=== PATIENT | male | born 1960 | race Caucasian/White ===

== ENCOUNTER 2018-03-25 18:41 | Inpatient (IN) | payer OTHER ==
[~2018-03-25] VITALS: Ht 180.3 cm; Wt 74.9 kg
--- NOTE | 2018-03-25 18:48 | NUR ---
PT AMBULATES TO BED 6
[2018-03-25 18:52] VITALS: BP 136/76
--- NOTE | 2018-03-25 18:54 | NUR ---
PT HAS ABRASION TO R THUMB S/P SITE INTERPRETER INJURY AT WORK. NO OTHER COMPLAINTS. 10 PAIN
--- NOTE | 2018-03-25 18:54 | NUR ---
PT AMBULATES TO ED BED 6
--- NOTE | 2018-03-25 19:12 | NUR ---
PT RESTING IN BED, RR EVEN AND UNLABORED. LACERATION NOTED ON R THUMB, BLEEDING CONTROLLED, X5 DAYS. BLOOD SUGAR TOO HIGH TO READ AT THIS TIME. PRICE SIMMONS MADE AWARE, PA EVALUATING PT AT THIS TIME.
[2018-03-25] MEDS ORDERED: NACL 0.9% 1,000 ML IV ONE (19:20)
[2018-03-25] MEDS ORDERED: VANCOMYCIN 1GM/DEXT 5% PREMIX 200 ML IV ONE (19:20)
[2018-03-25] MEDS ORDERED: VANCOMYCIN PER PHARMACY MC PRN ×2 (19:20→22:50)
[2018-03-25] MEDS ORDERED: VANCOMYCIN 1,000 MG VIAL ONE (19:54)
[2018-03-25 19:56] LABS: BASOPHILS # (AUTO) 0.1 K/uL (0.00-0.22); BASOPHILS % (AUTO) 0.7 % (0.0-2.0); EOSINOPHILS # (AUTO) 0.1 K/uL (0-0.4); EOSINOPHILS % (AUTO) 0.8 % (0.0-4.0); HEMATOCRIT 43.1 % (36-52); HEMOGLOBIN 14.6 g/dL (12.0-18.0); LYMPHOCYTES # (AUTO) 2.3 K/uL (2.0-11.5); LYMPHOCYTES % (AUTO) 26.2 % (20.5-51.1); MEAN CORPUSCULAR HEMOGLOBIN 31 pg (27-31); MEAN CORPUSCULAR HGB CONC 34 g/dL (33-37); MEAN CORPUSCULAR VOLUME 91.1 fL (80-94); MONOCYTES # (AUTO) 0.7 K/uL (0.8-1.0); MONOCYTES % (AUTO) 7.6 % (1.7-9.3); NEUTROPHILS # (AUTO) 5.6 K/uL (1.8-7.7); NEUTROPHILS % (AUTO) 64.7 % (42.2-75.2); PLATELET COUNT (AUTO) 235 K/uL (140-450); RED BLOOD CELL COUNT(AUTO) 4.73 MIL/uL (4.20-6.10); RED CELL DISTRIBUTION WIDTH 13.5 % (11.6-13.7); WHITE BLOOD COUNT (AUTO) 8.6 K/uL (4.8-10.8)
[2018-03-25] MEDS ORDERED: INSULIN REGULAR, HUMAN 100 UNIT/ML VIAL SUBQ ONE (20:05)
[2018-03-25 20:13] LABS: ANION GAP 8.5 (8-16); CARBON DIOXIDE 29.8 mmol/L (21-32); CREATININE 1.1 mg/dL (0.7-1.3); POTASSIUM 4.3 mmol/L (3.5-5.1)
--- NOTE | 2018-03-25 21:21 | NUR ---
PT RESTING IN BED, RR EVEN AND UNLABORED. PT REPORTS TOLERABLE R THUMB PAIN, VS NOTED. BLOOD GLUCOSE 446, PA TROY MADE AWARE.
[2018-03-25] MEDS ORDERED: HYDROcodone/APAP 5/325 MG 1 TAB TAB PO PRN (22:50)
[2018-03-25] MEDS ORDERED: ONDANSETRON 4 MG/2 ML VIAL IVP PRN (22:50)
[2018-03-25] MEDS ORDERED: LORazepam 2 MG/ML VIAL IVP PRN (22:50)
[2018-03-25] MEDS ORDERED: ACETAMINOPHEN 325 MG TAB PO PRN (22:50)
[2018-03-25] MEDS ORDERED: DEXTROSE 50% 50 ML SYR IVP PRN (22:55)
--- NOTE | 2018-03-25 23:06 | NUR ---
PENDING ADMIT, AWAITING ADMIT ORDER FROM ADMITTING MD
[2018-03-26] VITALS: BP 103/73
--- NOTE | 2018-03-26 | NUR ---
RECEIVED PT FROM ER NURSE PEE-JANETT AT BEDSIDE. PT ARRIVED VIA WHEELCHAIR, AMBULATORY. PT AOX4, SLOVENIAN SPEAKING. ON ROOM AIR WITH IV SITE ON LEFT AC #18G. RIGHT THUMB CELLULITIS- OPEN WOUND. PICTURE IN CHART. MRSA SWAB COLLECTED. VITAL SIGNS TAKEN AND TOELRATED WELL. BLOOD GLUCOSE 243- WILL GIVE INSULIN COVERAGE. ORIENTED PT TO ROOM, CALL LIGHT, BED, RESTROOM LOCATION. DISCUSSED PLAN OF CARE AND PT VERBALIZED UNDERSTANDING. NO S/S OF RESPIRATORY DISTRESS OR DISCOMFORT NOTED AT THIS TIME. BED IN LOWEST POSITION, BED BREAKS ON, BOTH SIDE RAILS UP. BEDSIDE TABLE AND CALL LIGHT ARE WITHIN REACH. WILL CONTINUE TO MONITOR.
--- NOTE | 2018-03-26 00:08 | NUR ---
Patient will be admitted to care of DR. HUMPHREYS. Admited to [facility]. Will go to room 119. Belongings list completed. Report to COLLEEN ROWLAND.
[2018-03-26] MEDS ORDERED: INSULIN LANTUS 100 UNITS/ML 10 ML VIAL SUBQ SCH (00:30)
[2018-03-26] MEDS: NACL 0.9% 1,000 ML IV SCH ×3 (00:41→12:30)
--- NOTE | 2018-03-26 00:41 | NUR ---
IVF HUNG. PT TOLERATED WELL. NO S/S OF RESPIRATORY DISTRESS OR DISCOMFORT NOTED AT THIS TIME. WILL CONTINUE TO MONITOR.
--- NOTE | 2018-03-26 00:50 | NUR ---
SCHEDULED MEDICATION LANTUS GIVEN AND TOLERATED WELL. NO S/S OF RESPIRATORY DISTRESS OR DISCOMFORT NOTED AT THIS TIME. WILL CONTINUE TO MONITOR.
--- NOTE | 2018-03-26 01:48 | NUR ---
DR. HUMPHREYS AWARE OF EKG RESULTS- AV DISSOCIATION AND DECREASING HR. ORDERED DR. BHAKTA CONSULT.
--- NOTE | 2018-03-26 02:00 | NUR ---
PT SLEEPING IN BED. NO S/S OF RESPIRATORY DISTRESS OR DISCOMFORT NOTED AT THIS TIME. WILL CONTINUE TO MONITOR.
[2018-03-26 04:00] VITALS: BP 122/74
--- NOTE | 2018-03-26 04:00 | NUR ---
VITAL SIGNS TAKEN AND TOLERATED WELL. PT CONTINUES TO SLEEP IN BED. NO S/S OF RESPIRATORY DISTRESS OR DISCOMFORT NOTED AT THIS TIME. WILL CONTINUE TO MONITOR.
[2018-03-26] MEDS: BLOOD GLUCOSE MONITORING 1 DEV DEV FS SCH ×4 (05:35→19:39)
--- NOTE | 2018-03-26 05:35 | NUR ---
BLOOD GLUCOSE 203- WILL ADMINISTER INSULIN COVERAGE.
[2018-03-26] MEDS: INSULIN LISPRO SLIDING SCALE 100 UNITS/ML VIAL SUBQ PRN ×4 (06:15→20:02)
--- NOTE | 2018-03-26 06:15 | NUR ---
INSULIN COVERAGE GIVEN AND TOLERATED WELL. NO S/S OF RESPIRATORY DISTRESS OR DISCOMFORT NOTED AT THIS TIME. WILL CONTINUE TO MONITOR.
--- NOTE | 2018-03-26 07:13 | NUR ---
ENDORSED PT CARE TO DAY SHIFT NURSE BRISEYDA FOR CONTINUITY OF CARE.
[2018-03-26 08:00] VITALS: BP 102/66
[2018-03-26 08:18] LABS: BASOPHILS % (AUTO) 0.2 % (0.0-2.0); EOSINOPHILS # (AUTO) 0.1 K/uL (0-0.4); EOSINOPHILS % (AUTO) 1.1 % (0.0-4.0); HEMATOCRIT 40.1 % (36-52); HEMOGLOBIN 13.6 g/dL (12.0-18.0); LYMPHOCYTES # (AUTO) 3.1 K/uL (2.0-11.5); LYMPHOCYTES % (AUTO) 32.3 % (20.5-51.1); MEAN CORPUSCULAR HEMOGLOBIN 31 pg (27-31); MEAN CORPUSCULAR HGB CONC 34 g/dL (33-37); MONOCYTES # (AUTO) 0.8 K/uL (0.8-1.0); MONOCYTES % (AUTO) 8.1 % (1.7-9.3); NEUTROPHILS # (AUTO) 5.6 K/uL (1.8-7.7); NEUTROPHILS % (AUTO) 58.3 % (42.2-75.2); PLATELET COUNT (AUTO) 210 K/uL (140-450); RED BLOOD CELL COUNT(AUTO) 4.45 MIL/uL (4.20-6.10); RED CELL DISTRIBUTION WIDTH 13.5 % (11.6-13.7); WHITE BLOOD COUNT (AUTO) 9.6 K/uL (4.8-10.8)
[2018-03-26 08:30] LABS: MAGNESIUM 1.3 mg/dL (1.8-2.4); PHOSPHORUS 3.3 mg/dL (2.5-4.9)
[2018-03-26] MEDS: VANCOMYCIN 750 MG in NACL 0.9% 250 ML IV SCH ×2 (08:38→19:39)
[2018-03-26] MEDS: ENOXAPARIN 40 MG/0.4 ML SYR SUBQ SCH (08:39)
--- NOTE | 2018-03-26 08:39 | NUR ---
PATIENT HAS BEEN SCREENED AND CATEGORIZED HIGH NUTRITION RISK. PATIENT WILL BE SEEN WITHIN 1-2 DAYS OF ADMISSION. 03/26/18 03/27/[address]
--- NOTE | 2018-03-26 08:41 | NUR ---
ADMINISTERED MORNING MEDS. REPLACED THE IVF, GAVE LOVENOX, AND STARTED THE VANCO. PT TOLERATED WELL. ASKED IF HE WAS LEAVING TODAY. NOTIFIED PT POSSIBLY TOMORROW. BS THIS MORNING WAS 203. HR 52. PT HAS A CONSULT WITH DR BHAKTA AND DR MIRAMONTES FOR DM INFECTION. MET ALL NEEDS. CALL LIGHT WITHIN REACH. WILL CONTINUE TO MONITOR PT. Addendum: 03/26/18 at 0848 by Fifi Rodrigues RN HELD THE HUMALOG DUE AT 0730. UNSURE IF IT WAS GIVEN BY KILN HAND. PER PT, HE DID RECEIVE INSULIN THIS MORNING. BUT IT IS NOT DOCUMENTED.
--- NOTE | 2018-03-26 08:52 | NUR ---
TURNED DOWN THE ALARM TO BELOW 40 D/T CONSTANT BEEPING PER BILINGUAL INSTRUCTOR. WHEN PT SLEEPS, HR TENDS TO DROP. WILL CONTINUE TO MONITOR PT.
[2018-03-26 09:42] LABS: ANION GAP 11.5 (8-16); CARBON DIOXIDE 28.1 mmol/L (21-32); POTASSIUM 3.6 mmol/L (3.5-5.1)
[2018-03-26 09:43] LABS: CREATININE 0.6 mg/dL (0.7-1.3); TOTAL BILIRUBIN 0.4 mg/dL (0.0-1.0)
[2018-03-26 09:44] LABS: ALBUMIN 2.6 g/dL (3.4-5.0)
--- NOTE | 2018-03-26 10:45 | NUR ---
DR REYES IS HERE TO SEE PT. PER , MAY NEED DEBRIDEMENT TOMORROW. ORDERS FOR NUC MED IN. NUC MED CALLED TO LET US KNOW IT WILL BE TOMORROW. NO PREP NEEDED.
[2018-03-26] MEDS: INSULIN LISPRO 100 UNITS/ML VIAL SUBQ SCH ×3 (11:30→17:07)
[2018-03-26 12:00] VITALS: BP 109/72
[2018-03-26] MEDS ORDERED: MAG SULF 2000 MG/WATER PREMIX 50 ML IV SCH (12:00)
--- NOTE | 2018-03-26 13:35 | NUR ---
PT RESTING COMFORTABLY. NO SIGNS OF DISTRESS. NO COMPLAINTS. WILL CONTINUE TO MONITOR PT.
--- NOTE | 2018-03-26 15:09 | NUR ---
PT IS SLEEPING. NO SIGNS OF DISTRESS. NO COMPLAINTS AT THIS TIME. WILL CONTINUE TO MONITOR PT.
--- NOTE | 2018-03-26 15:10 | NUR ---
03/26/18 RD INITIAL ASSESSMENT COMPLETED PLEASE REFER TO NUTRITION ASSESSMENT UNDER CARE ACTIVITY FOR ESTIMATED NUTRITIONAL NEEDS. 1. CONTINUE CCHO 60 GM DIET TOLERATED 2. RECOMMEND LETICIA BID FOR WOUND HEALING 3. RD PROVIDED NUTRITION EDUCATION ON DIABETES 4. RD TO FOLLOW-UP 3-5 DAYS, MODERATE RISK CONNIE PURDY RD
--- NOTE | 2018-03-26 15:15 | NUR ---
DR BHAKTA CAME TO SEE PT.
--- NOTE | 2018-03-26 15:50 | NUR ---
DIRECTOR NICU RECOMMENDATION FOR LETICIA BID, FOR CELLULITIS.
[2018-03-26 16:00] VITALS: BP 109/69
--- NOTE | 2018-03-26 17:00 | NUR ---
PT FAMILY VISITING. NO SIGNS OF DISTRESS. WILL CONTINUE TO MONITOR PT.
[2018-03-26] MEDS: INSULIN LANTUS 100 UNITS/ML 10 ML VIAL SUBQ SCH (17:09)
--- NOTE | 2018-03-26 19:10 | NUR ---
ENDORSED PT TO THE NEONATAL SOCIAL WORKER NURSE AT BEDSIDE FOR CONTINUITY OF CARE. PT IS IN STABLE CONDITION.
--- NOTE | 2018-03-26 19:11 | NUR ---
RECEIVED REPORT FROM DAY SHIFT NURSE LISSA-JANETT. FAMILY AT BEDSIDE. PT AOX4, AZERI SPEAKING. AMBULATORY WITH BATHROOM PRIVILEGES. ON ROOM AIR WITH IV SITE ON LEFT AC #18G. RIGHT THUMB CELLULITIS- OPEN WOUND. PICTURE IN CHART. DISCUSSED PLAN OF CARE AND PT VERBALIZED UNDERSTANDING. NO S/S OF RESPIRATORY DISTRESS OR DISCOMFORT NOTED AT THIS TIME. BED IN LOWEST POSITION, BED BREAKS ON, BOTH SIDE RAILS UP. BEDSIDE TABLE AND CALL LIGHT ARE WITHIN REACH. WILL CONTINUE TO MONITOR.
[2018-03-26 20:00] VITALS: BP 117/72
--- NOTE | 2018-03-26 20:02 | NUR ---
VITAL SIGNS TAKEN AND TOLERATED WELL. NO S/S OF RESPIRATORY DISTRESS OR DISCOMFORT NOTED AT THIS TIME. SCHEDULED MEDICATION VANCOCIN GIVEN AND TOLERATED WELL. BLOOD GLUCOSE 206-INSULIN COVERAGE GIVEN AND TOLERATED WELL. NO S/S OF RESPIRATORY DISTRESS OR DISCOMFORT NOTED AT THIS TIME. WILL CONTINUE TO MONITOR.
--- NOTE | 2018-03-26 21:13 | NUR ---
DR. MIRAMONTES IN TO SEE PT.
--- NOTE | 2018-03-26 22:00 | NUR ---
PT SLEEPING AT THIS TIME. NO S/S OF RESPIRATORY DISTRESS OR DISCOMFORT NOTED AT THIS TIME. WILL CONTINUE TO MONITOR.
[2018-03-27] VITALS: BP 96/69
--- NOTE | 2018-03-27 | NUR ---
VITAL SIGNS TAKEN AND TOLERATED WELL. NO S/S OF RESPIRATORY DISTRESS OR DISCOMFORT NOTED AT THIS TIME. WILL CONTINUE TO MONITOR.
--- NOTE | 2018-03-27 00:30 | NUR ---
NEW IVF HUNG AND PT TOLERATED WELL. NO S/S OF RESPIRATORY DISTRESS OR DISCOMFORT NOTED AT THIS TIME. WILL CONTINUE TO MONITOR.
--- NOTE | 2018-03-27 02:00 | NUR ---
PT CONTINUES TO SLEEP IN BED. NO S/S OF RESPIRATORY DISTRESS OR DISCOMFORT NOTED AT THIS TIME. WILL CONTINUE TO MONITOR.
[2018-03-27 04:00] VITALS: BP 109/69
--- NOTE | 2018-03-27 04:00 | NUR ---
VITAL SIGNS TAKEN AND TOLERATED WELL. NO S/S OF RESPIRATORY DISTRESS OR DISCOMFORT NOTED AT THIS TIME. WILL CONTINUE TO MONITOR.
[2018-03-27] MEDS: NACL 0.9% 1,000 ML IV SCH ×2 (04:53→14:48)
--- NOTE | 2018-03-27 06:00 | NUR ---
BLOOD GLUCOSE 161-INSULIN COVERAGE NEEDED.
[2018-03-27] MEDS: BLOOD GLUCOSE MONITORING 1 DEV DEV FS SCH ×4 (06:21→21:00)
[2018-03-27] MEDS: INSULIN LISPRO SLIDING SCALE 100 UNITS/ML VIAL SUBQ PRN ×3 (06:21→18:20)
--- NOTE | 2018-03-27 06:21 | NUR ---
INSULIN COVERAGE GIVEN. PT TOLERATED WELL. SCHEDULED 5 UNITS OF HUMALOG NOT GIVEN DUE TO LOW BLOOD GLUCOSE. WILL ENDORSE TO DAY SHIFT NURSE TO GIVE SCHEDULED 5 UNITS OF HUMALOG AFTER PT HAS EATEN AND BLOOD GLUCOSE IS RE-CHECKED.
[2018-03-27 06:50] LABS: BASOPHILS # (AUTO) 0.1 K/uL (0.00-0.22); BASOPHILS % (AUTO) 0.5 % (0.0-2.0); EOSINOPHILS # (AUTO) 0.1 K/uL (0-0.4); EOSINOPHILS % (AUTO) 1.3 % (0.0-4.0); HEMATOCRIT 38.9 % (36-52); HEMOGLOBIN 13.3 g/dL (12.0-18.0); LYMPHOCYTES # (AUTO) 3.6 K/uL (2.0-11.5); LYMPHOCYTES % (AUTO) 35.7 % (20.5-51.1); MEAN CORPUSCULAR HEMOGLOBIN 31 pg (27-31); MEAN CORPUSCULAR HGB CONC 34 g/dL (33-37); MEAN CORPUSCULAR VOLUME 90.4 fL (80-94); MONOCYTES # (AUTO) 0.9 K/uL (0.8-1.0); MONOCYTES % (AUTO) 8.5 % (1.7-9.3); NEUTROPHILS # (AUTO) 5.5 K/uL (1.8-7.7); PLATELET COUNT (AUTO) 220 K/uL (140-450); RED CELL DISTRIBUTION WIDTH 13.4 % (11.6-13.7); WHITE BLOOD COUNT (AUTO) 10.2 K/uL (4.8-10.8)
--- NOTE | 2018-03-27 07:24 | NUR ---
ENDORSED PT CARE TO DAY SHIFT NURSE JASMIN-RN FOR CONTINUITY OF CARE.
[2018-03-27] MEDS: INSULIN LISPRO 100 UNITS/ML VIAL SUBQ SCH ×3 (07:30→18:19)
[2018-03-27 07:42] LABS: ALBUMIN 2.5 g/dL (3.4-5.0); ANION GAP 9.5 (8-16); CARBON DIOXIDE 29.3 mmol/L (21-32); CREATININE 0.6 mg/dL (0.7-1.3); POTASSIUM 3.8 mmol/L (3.5-5.1); TOTAL BILIRUBIN 0.4 mg/dL (0.0-1.0)
[2018-03-27 07:52] LABS: FREE T4 (FREE THYROXINE) 1.14 ng/dL (0.76-1.46); MAGNESIUM 1.4 mg/dL (1.8-2.4)
[2018-03-27 08:00] VITALS: BP 121/72
--- NOTE | 2018-03-27 08:00 | NUR ---
RECEIVED REPORT FROM REI ROWLAND FOR CONTINUITY OF CARE PATIENT AWAKE A/OX4 NO S/S OF RESP DISTRESS NOTED ABLE TO MAKE NEEDS KNOWN. RT THUMB OPEN WOUND COVERED WITH BANDAGE WITH MINIMAL DRAINAGE NOTED. DENIES ANY PAIN IV SITE RT AC GAUGE 20 INTACT AND PATENT. IVF INFUSING WELL. PLAN OF CARE DISCUSSED WITH THE PATIENT VITALS STABLE WILL CONTINUE TO MONITOR.
[2018-03-27] MEDS: ENOXAPARIN 40 MG/0.4 ML SYR SUBQ SCH (09:00)
--- NOTE | 2018-03-27 09:00 | NUR ---
HELD LOVENOX FOR POSSIBLE SURGERY WITH DR REYES. BONE SCAN SCHEDULE PRIOR TO SURGERY
[2018-03-27] MEDS: VANCOMYCIN 750 MG in NACL 0.9% 250 ML IV SCH ×2 (09:13→22:02)
--- NOTE | 2018-03-27 09:20 | NUR ---
WOUND CARE EVALUATION NOTES: REASON FOR EVALUATION: RIGHT THUMB CELLULITIS SKIN ASSESSMENT DONE ON THIS 57 Y/O MALE PATIENT FROM HOME TO [facility], WITH INITIAL DIAGNOSIS OF RIGHT THUMB PAIN. PAST MEDICAL HISTORY INCLUDE UNCONTROL DM. X- RAY TO RIGHT THUMB RESULT DISTAL PHALANGE CORTICAL AVULSION AND IMPACTED FRACTURE OF DISTAL PHALANX OF RIGHT THUMB. ABOVE INFORMATION WAS OBTAINED FROM THE ADMISSION H&P. LABS ARE WBC 10.2, H/H 13.3/38.9, GLUCOSE 216, AND ALBUMIN 2.5. PATIENT IS AWAKE, ORIENTED TO PERSON, PLACE, DATE AND TIME. SKIN WARM TO TOUCH WNL, RIGHT HAND WARM NORMAL IN COLOR WITH GOOD CIRCULATION TO ALL FINGERS EXCEPT RIGHT THUMB , SAM OF PAIN TO RIGHT THUMB.TOENAILS ARE SHORT AND THICKENED, FUNGALLY LOOKING, NO EDEMA, BILATERAL PEDAL PULSES, PRESENT. LEFT ARM PERIPHERAL IV PATENT AND INTACT. ON ROOM AIR. PLAN OF CARE AND DIABETIC FOOT CARE EXPLAIN TO PT. PT.ABLE TO VERBALIZE UNDERSTANDING. INTEGUMENTARY: -CELLULITIS TO RIGHT THUMB, 2X2.5X0.1 CM, WOUND BED IN DARK PURPLE, FRANCOIS-WOUND SKIN MACERATED, RIGHT THUMB IS WARM WITH SWELLING, PAIN 0/10 RECOMMENDATIONS: -PENDING I&D -BONE SCAN TO R/O OSTEOMYELITIS -CLEANSE RIGHT THUMB WITH NS, PAT DRY, APPLY ADAPTIC DRESSING AND WRAP WITH KERLIX ROLL AND SECURE WITH TAPE -KEEP SKIN CLEAN AND DRY AT ALL TIMES. RECOMMENDATIONS DISCUSSED WITH PRIMARY RN WILL FOLLOW UP PATIENT Q7 DAYS AND PRN. PLEASE CONTACT WOUND CARE NURSE FOR ANY QUESTIONS AND CHANGES IN SKIN CONDITION.
--- NOTE | 2018-03-27 09:40 | NUR ---
PATIENT LEFT TO NUCLEAR [facility] FORE BONE SCAN. STABLE CONDITION
[2018-03-27] MEDS ORDERED: MAG SULF 2000 MG/WATER PREMIX 100 ML IV ONE (10:40)
[2018-03-27] MEDS ORDERED: MAGNESIUM SULFATE 4GM in STERILE WATER 100 ML PREMIX IV SCH (11:00)
--- NOTE | 2018-03-27 11:30 | NUR ---
CHECKED BLOOD SUGAR 237 SLIDING SCALE COVERAGE 6 UNITS HUMALOG GIVEN, VITALS STABLE DENIES ANY PAIN.
--- NOTE | 2018-03-27 11:55 | NUR ---
TRANSFERRED PT TO ICU WITH BEDSIDE MONITOR IN PLACE. PT IN STABLE CONDITION DURING TRANSPORT WITH HR OF 61 BPM.N RESPIRATORY DISTRESS.
[2018-03-27 12:00] VITALS: BP 112/76
--- NOTE | 2018-03-27 12:13 | NUR ---
Initial review faxed to [facility].
[2018-03-27] MEDS: GAUZE TP SCH (13:00)
--- NOTE | 2018-03-27 13:00 | NUR ---
DR AGUIAR VISITED PATIENT UPDATED PATIENT'S CONDITION NO NEW ORDER AT THIS TIME.
--- NOTE | 2018-03-27 15:00 | NUR ---
CALM AND QUITE RELAXED ,STABLE CONDITION AT THIS TIME.
[2018-03-27 16:00] VITALS: BP 110/71
--- NOTE | 2018-03-27 17:04 | NUR ---
PT LEFT TO NUCLEAR MEDS FOR BONE SCAN , STABLE CONDITION
[2018-03-27] MEDS: INSULIN LANTUS 100 UNITS/ML 10 ML VIAL SUBQ SCH (18:18)
--- NOTE | 2018-03-27 18:46 | NUR ---
PATIENT IS BACK FROM THE NUCLEAR MEDS ,DENIES ANY PAIN , DUE MEDS GIVEN .SAFETY MAINTAINED CALL LIGHT IN REACH.
--- NOTE | 2018-03-27 19:10 | NUR ---
RECEIVED BEDSIDE REPORT FROM AM NURSE. PATIENT AWAKE A/OX4 NO S/S OF RESP DISTRESS NOTED ABLE TO MAKE NEEDS KNOWN. RT THUMB OPEN WOUND COVERED WITH BANDAGE WITH MINIMAL DRAINAGE NOTED. DENIES ANY PAIN IV SITE RT AC GAUGE 20 INTACT AND PATENT. IVF INFUSING WELL. PLAN OF CARE DISCUSSED WITH THE PATIENT VITALS STABLE WILL CONTINUE TO MONITOR.
--- NOTE | 2018-03-27 23:20 | NUR ---
INFORMED DR. Jeannie BHAKTA THAT HR IS 41-45 BPM PER TELE REPORT.
--- NOTE | 2018-03-27 23:39 | NUR ---
RECEIVED CALL FROM ELENA LEONARD AT 2320, PATIENT WILL BE TRANSFERRED HERE IN ICU MD VALERIE ORDERED TO OBTAIN CONSENT FOR TEMPORARY PACEMAKER PLACEMENT TO BE DONE TOMORROW AT 0900, NPO AFTER MIDNIGHT.
--- NOTE | 2018-03-27 23:45 | NUR ---
RECEIVED PT FROM [facility], TRANSFERRED TO ICU BED#2.MONITORS ATTACHED.ALERT AND ORIENTED X4. ON ROOM AIR.NO SOB NOTED.PT SAMMARINESE SPEAKING.ABLE TO UNDERSTAND SIMPLE TURKMEN.PERIPHERAL IV TO LT AC G20 INTACT AND G22 ON RT F/A,SALINE LOCK.DENIES N/V.DENIES CHEST PAIN, CHEST TIGHTNESS.W/OPEN WOUND TO RT THUMB(SEE WOUND ASSESSMENT).DRESSING CHANGED.PT ABLE TO MOVE ALL EXTREMITIES.
[2018-03-28] VITALS (13 sets, daily range): BP systolic 92–141; BP diastolic 38–82
--- NOTE | 2018-03-28 | NUR ---
AD STRINGER UP SOLDERING MACHINE [id number] EXPLAINED TO THE PT RE: CONSENT FOR PACEMAKER AND DEBRIDEMENT OF RIGHT THUMB; PT SAID HE WILL SIGN THE CONSENT IN AM AFTER HE SPEAKS WITH THE DOCTOR.HE DENIES KNOWLEDGE OF PACEMAKER PLACEMENT.PT DENIES CHEST PAIN, CHEST TIGHTNESS AND DIZZINESS. NO C/O PAIN AT THIS TIME.MAINTAINED OF NPO POST MIDNIGHT.
--- NOTE | 2018-03-28 01:07 | NUR ---
HR GOES DOWN TO 38; PT ASYMPTOMATIC.DENIES CHEST PAIN/CHEST TIGHTNESS. NO SOB ON ROOM AIR.WILL CONTINUE TO CLOSELY MONITOR PT Addendum: 03/28/18 at 0109 by Destinee Gauthier RN STILL ON STANDBY EXTERNAL PACEMAKER.DR Merlene BHAKTA AWARE
[2018-03-28] MEDS: NACL 0.9% 1,000 ML IV SCH ×3 (01:09→14:58)
--- NOTE | 2018-03-28 02:00 | NUR ---
pt still awake;denies pain, denies n/v and chest pain. able to reposition self.
--- NOTE | 2018-03-28 04:00 | NUR ---
afebrile.voided freely using urinal.no sob noted on room air.external pacemaker on standby
--- NOTE | 2018-03-28 05:42 | NUR ---
chg bath done.pt for debridement of rt thumb and placement of temporary pacemaker in am.no consents signed at this time.
--- NOTE | 2018-03-28 06:21 | NUR ---
PT ASLEEP AT THIS TIME.NO SOB NOTED ON ROOM AIR.EXTERNAL PACEMAKER ON STANDBY.
--- NOTE | 2018-03-28 07:14 | NUR ---
RECEIVED REPORT FROM SLOT KEY PERSON RN. PT RESTING IN BED. ALERT A/O X4. SB ON MONITOR. PLANNED FOR TEMPORARY PACEMAKER PLACEMENT. ABLE TO MAKE NEEDS KNOWN. SKIN DRY AND WARM TO TOUCH. LUNGS CLEAR. DENIES CHEST PAIN, DIZZINESS AT THIS TIME. RIGHT FOREARM 22G AND LEFT AC 22 G, INTACT. NS RUNNING AT 100 ML/HR. ABDOMEN SOFT ROUND AND NON-TENDER. ACTIVE BOWEL SOUND. OPEN WOUND ON RIGHT THUMB NOTED, COVERED WITH DRESSING. INTACT DRESSING. PLANNED FOR WOUND DEBRIDEMENT. KEPT HOB ELEVATED. BED IN LOW POSITION LOCKED. WILL CONTINUE TO MONITOR.
--- NOTE | 2018-03-28 07:14 | NUR ---
REPORT GIVEN TO HYUN ROWLAND. PT AWAKE ALERT AND ORIENTED.
[2018-03-28] MEDS: INSULIN LISPRO 100 UNITS/ML VIAL SUBQ SCH ×3 (07:30→16:34)
[2018-03-28 07:33] LABS: BASOPHILS % (AUTO) 0.5 % (0.0-2.0); EOSINOPHILS # (AUTO) 0.1 K/uL (0-0.4); HEMATOCRIT 39.6 % (36-52); HEMOGLOBIN 13.2 g/dL (12.0-18.0); LYMPHOCYTES # (AUTO) 3.2 K/uL (2.0-11.5); LYMPHOCYTES % (AUTO) 37.4 % (20.5-51.1); MEAN CORPUSCULAR HEMOGLOBIN 30 pg (27-31); MEAN CORPUSCULAR HGB CONC 33 g/dL (33-37); MEAN CORPUSCULAR VOLUME 90.9 fL (80-94); MONOCYTES # (AUTO) 0.5 K/uL (0.8-1.0); NEUTROPHILS # (AUTO) 4.7 K/uL (1.8-7.7); NEUTROPHILS % (AUTO) 55.1 % (42.2-75.2); PLATELET COUNT (AUTO) 227 K/uL (140-450); RED BLOOD CELL COUNT(AUTO) 4.35 MIL/uL (4.20-6.10); RED CELL DISTRIBUTION WIDTH 13.6 % (11.6-13.7); WHITE BLOOD COUNT (AUTO) 8.6 K/uL (4.8-10.8)
--- NOTE | 2018-03-28 07:50 | NUR ---
PT DENIED MORNING CARE. SAID HE WANTS TO SLEEP AT THIS TIME.
[2018-03-28 08:03] LABS: ALBUMIN 2.7 g/dL (3.4-5.0); ANION GAP 6.8 (8-16); CREATININE 0.5 mg/dL (0.7-1.3); POTASSIUM 3.8 mmol/L (3.5-5.1); TOTAL BILIRUBIN 0.3 mg/dL (0.0-1.0)
--- NOTE | 2018-03-28 08:10 | NUR ---
CHEST X-RAY DONE.
--- NOTE | 2018-03-28 08:17 | NUR ---
DR. BHAKTA AWARE ABOUT CONSENT NOT SIGNED BY PT. PT WANTS TO TALK TO THE DOCTOR BEFORE SIGN CONSENT. DOCTOR SAID OK.
[2018-03-28] MEDS: BLOOD GLUCOSE MONITORING 1 DEV DEV FS SCH ×4 (08:27→20:11)
[2018-03-28 08:34] LABS: PROTHROMBIN TIME 10.1 secs (10.8-13.4)
[2018-03-28] MEDS: VANCOMYCIN 1GM/DEXT 5% PREMIX 200 ML IV SCH ×2 (08:41→16:38)
[2018-03-28] MEDS: ENOXAPARIN 40 MG/0.4 ML SYR SUBQ SCH (08:46)
--- NOTE | 2018-03-28 08:46 | NUR ---
PT IS PLANNED FOR WOUND DEBRIDEMENT. LOVENOX NOT ADMINISTERED. DR. BHAKTA MADE AWARE. ALSO NOTIFIED THAT NOT ADMINISTERING HUMALOG BECAUSE PT IS IN NPO STATUS. DOCTOR SAID OK.
[2018-03-28] MEDS ORDERED: BUPIVACAINE-MPF/EPI 0.25% 30 ML VIAL INJ ONE (08:52)
[2018-03-28] MEDS ORDERED: MAG SULF 2000 MG/WATER PREMIX 50 ML IV SCH (09:00)
--- NOTE | 2018-03-28 09:04 | NUR ---
DR. BHAKTA EXPLAINED PT CONDITION TO PT AND FAMILY. VERBALIZED UNDERSTANDING. PT SIGNED THE CONSENTS FOR TEMPORARY PACEMAKER PLACEMENT AND WOUND DEBRIDEMENT. CONSENTS PUT IN RTHE CHART.
[2018-03-28] MEDS: BUPIVACAINE MPF 0.25% 10 ML VIAL INJ ONE ×2 (09:05→15:46)
--- NOTE | 2018-03-28 09:05 | NUR ---
PT TAKEN TO OR BY OR NURSE VIA BED IN STABLE CONDITION.
[2018-03-28] MEDS ORDERED: fentaNYL 0.05 MG/ML VIAL ONE ×2 (09:32→10:17)
[2018-03-28] MEDS ORDERED: MIDAZOLAM 2 MG/2 ML VIAL ONE ×2 (09:33→10:17)
[2018-03-28] MEDS ORDERED: LIDOCAINE 1% 50 ML ONE (09:35)
[2018-03-28] MEDS ORDERED: PROPOFOL 200 MG/20 ML VIAL IV ONE (09:52)
[2018-03-28] MEDS ORDERED: ONDANSETRON 4 MG/2 ML VIAL IVP PRN (10:20)
[2018-03-28] MEDS ORDERED: HYDROmorphone 1 MG/ML AMP IVP PRN (10:20)
[2018-03-28] MEDS ORDERED: BLOOD GLUCOSE MONITORING 1 DEV DEV FS SCH (10:30)
--- NOTE | 2018-03-28 11:00 | NUR ---
PT CAME BACK FROM OR AFTER WOUND DEBRIDEMENT ON RIGHT THUMB AND TEMPORARY PACEMAKER PLACEMENT AT RIGHT SUBCLAVIAN SET AT 60, mA 2. PT ON STABLE CONDITION. PACEMAKER SITE INTACT.
[2018-03-28] MEDS: INSULIN LISPRO SLIDING SCALE 100 UNITS/ML VIAL SUBQ PRN ×2 (11:36→16:35)
--- NOTE | 2018-03-28 12:08 | NUR ---
PT DENIES PAIN, N/V AT THIS TIME. DENIES ANY DIZZINESS OR DISCOMFORT. PT ATE LUNCH. RESTING IN BED COMFORTABLY AT THIS TIME. PACED RHYTHM ON MONITOR.
[2018-03-28] MEDS: GAUZE TP SCH (13:00)
--- NOTE | 2018-03-28 13:00 | NUR ---
DRESSING TO RIGHT THUMB NOT CHANGED. IT WAS DONE IN OR AFTER DEBRIDEMENT. INTACT DRESSING
--- NOTE | 2018-03-28 14:14 | NUR ---
Concurrent review and Operative Report faxed to [facility].
--- NOTE | 2018-03-28 15:01 | NUR ---
PT SLEEPING IN BED COMFORTABLY AT THIS TIME. PACED RHYTHM ON MONITOR. VS WNL.
[2018-03-28] MEDS: INSULIN LANTUS 100 UNITS/ML 10 ML VIAL SUBQ SCH (16:43)
--- NOTE | 2018-03-28 17:40 | NUR ---
RESTING IN BED COMFORTABLE. TALKING WITH THE FAMILY. VS WNL. PACED RHYTHM ON MONITOR.
--- NOTE | 2018-03-28 19:09 | NUR ---
RECEIVED REPORT FROM AM SHIFT. PT AFEBRILE. A0 X 4. ABLE TO VERBALIZE NEEDS. LUNG SOUNDS CLEAR BILAT. TEMPORARY PACEMAKER TO R SUBCLAVIAN NOTED. VENTRICULAR 60 BMP. 2 AMP. SB-SR ON MONITOR. ON CCHO 75G DIET. BOWEL SOUNDS ACTIVE X 4 QUADRANTS. PT CONTINENT FOR URINE. IV SITE R FA 22G AND L AC 22G PATENT INTACT. RIGHT THUMB DRESSING NOTED. INTACT. NO SIGNS OF ACUTE DISTRESS AT THIS TIME. CALL LIGHT WITHIN REACH. BED IN LOWEST POSITION. WILL CONTINUE TO MONITOR.
--- NOTE | 2018-03-28 19:11 | NUR ---
REPORT GIVEN TO ASSEMBLER ENGINE RN FOR CONTINUITY OF CARE. PT ON STABLE CONDITION.
--- NOTE | 2018-03-28 20:41 | NUR ---
PT URINATED VIA URINAL. 300ML OUTPUT YELLOW.
--- NOTE | 2018-03-28 21:09 | NUR ---
DR. BHAKTA AT BEDSIDE TO EVALUATE PT. UPDATED ON PTS CONDITION. WILL CONTINUE TO FOLLOW UP ADDITIONAL ORDERS
--- NOTE | 2018-03-28 23:01 | NUR ---
PT RESTING QUIETLY AT THIS TIME. NO SIGNS OF ACUTE DISTRESS NOTED.
[2018-03-29] VITALS (12 sets, daily range): BP systolic 102–142; BP diastolic 41–91
[2018-03-29] MEDS: VANCOMYCIN 1GM/DEXT 5% PREMIX 200 ML IV SCH ×2 (00:07→09:22)
[2018-03-29] MEDS: HYDROcodone/APAP 5/325 MG 1 TAB TAB PO PRN ×2 (02:23→07:36)
--- NOTE | 2018-03-29 02:30 | NUR ---
PT C/O THUMB PAIN 10 AT THIS TIME. GIVEN NORCO AT THIS TIME.
--- NOTE | 2018-03-29 03:30 | NUR ---
PT RESTING QUIETLY AT THIS TIME. NO C/O PAIN AT THIS TIME.
[2018-03-29] MEDS: NACL 0.9% 1,000 ML IV SCH ×2 (03:56→14:57)
--- NOTE | 2018-03-29 04:28 | NUR ---
PT C/O MILD THUMB PAIN AT THIS TIME. 650MG TYLENOL PO GIVEN.
[2018-03-29] MEDS ORDERED: MORPHINE SULFATE 2 MG/ML SYR IVP PRN (04:35)
--- NOTE | 2018-03-29 04:36 | NUR ---
SPOKE WITH DR. BHAKTA ABOUT PTS PAIN LEVEL. REPORTS SEVERE RIGHT THUMB PAIN. NEW ORDERS RECEIVED: MORPHINE 2MG Q4H IVP. TORB.
--- NOTE | 2018-03-29 04:55 | NUR ---
PT USED URINAL FOR UOP OF 320 ML. YELLOW URINE.
--- NOTE | 2018-03-29 04:57 | NUR ---
PT GIVEN MORPHINE 2MG FOR SEVERE THUMB PAIN. WILL CONTINUE TO MONITOR
[2018-03-29] MEDS: BLOOD GLUCOSE MONITORING 1 DEV DEV FS SCH ×4 (06:32→20:42)
--- NOTE | 2018-03-29 07:11 | NUR ---
ENDORSED CARE TO INCOMING SHIFT FOR CONTINUITY OF CARE. NO SIGNS OF ACUTE DISTRESS AT THIS TIME.
--- NOTE | 2018-03-29 07:12 | NUR ---
RECEIVED REPORT FROM ORACLE SOFTWARE ENGINEER RN. PT RESTING IN BED. ALERT A/O X4. PACED RHYTHM ON MONITOR. TEMPORARY PACEMAKER IN PLACE SET AT THE RATE 60, mA 2, ASYNCHRONIZE. NO ACTIVE BLEEDING, DENIES PAIN AT THE SITE. DRESSING INTACT. ABLE TO MAKE NEEDS KNOWN. SKIN DRY AND WARM TO TOUCH. LUNGS CLEAR. DENIES CHEST PAIN, DIZZINESS, NAUSEA AT THIS TIME. RIGHT FOREARM 22G AND LEFT AC 22 G, INTACT. NS RUNNING AT 100 ML/HR. ABDOMEN SOFT ROUND AND NON-TENDER. ACTIVE BOWEL SOUND. S/P WOUND DEBRIDEMENT DRESSING ON RIGHT THUMB. SLIGHT SEROSANGUINEOUS DISCHARGE NOTED. PT C/O RIGHT THUMB PAIN 5/. WILL PROVIDE WOUND CARE AND MEDICATE ORDERED. KEPT HOB ELEVATED. BED IN LOW POSITION LOCKED. WILL CONTINUE TO MONITOR.
[2018-03-29] MEDS: INSULIN LISPRO 100 UNITS/ML VIAL SUBQ SCH ×3 (07:32→16:29)
[2018-03-29] MEDS: INSULIN LISPRO SLIDING SCALE 100 UNITS/ML VIAL SUBQ PRN ×4 (07:32→20:42)
--- NOTE | 2018-03-29 07:58 | NUR ---
PT. REFUSED TO GET MORNING CARE, REFUSED TO BRUSH TEETH. PROVIDED BREAKFAST. ASSISTED NEEDED.
[2018-03-29 08:29] LABS: BASOPHILS % (AUTO) 0.2 % (0.0-2.0); EOSINOPHILS # (AUTO) 0.1 K/uL (0-0.4); EOSINOPHILS % (AUTO) 0.8 % (0.0-4.0); HEMATOCRIT 39.8 % (36-52); HEMOGLOBIN 13.6 g/dL (12.0-18.0); LYMPHOCYTES # (AUTO) 2.8 K/uL (2.0-11.5); LYMPHOCYTES % (AUTO) 29.7 % (20.5-51.1); MEAN CORPUSCULAR HEMOGLOBIN 31 pg (27-31); MEAN CORPUSCULAR HGB CONC 34 g/dL (33-37); MEAN CORPUSCULAR VOLUME 90.9 fL (80-94); MONOCYTES # (AUTO) 0.6 K/uL (0.8-1.0); MONOCYTES % (AUTO) 6.8 % (1.7-9.3); NEUTROPHILS # (AUTO) 5.9 K/uL (1.8-7.7); NEUTROPHILS % (AUTO) 62.5 % (42.2-75.2); PLATELET COUNT (AUTO) 216 K/uL (140-450); RED BLOOD CELL COUNT(AUTO) 4.38 MIL/uL (4.20-6.10); RED CELL DISTRIBUTION WIDTH 13.3 % (11.6-13.7); WHITE BLOOD COUNT (AUTO) 9.5 K/uL (4.8-10.8)
[2018-03-29] MEDS: ENOXAPARIN 40 MG/0.4 ML SYR SUBQ SCH (08:33)
--- NOTE | 2018-03-29 08:35 | NUR ---
WAITING VANCO TROUGH RESULT TO ADMINISTER VANCOMYCIN MED.
--- NOTE | 2018-03-29 08:47 | NUR ---
PT RESTING IN BED, STATED HE WANTS TO TAKE A NAP. BEDSIDE MONITOR SHOWS PACED RHYTHM. NO S/S OF RESPIRATORY DISTRESS NOTED.
[2018-03-29 08:49] LABS: ALBUMIN 2.6 g/dL (3.4-5.0); ANION GAP 8.3 (8-16); CARBON DIOXIDE 27.4 mmol/L (21-32); CREATININE 0.5 mg/dL (0.7-1.3); POTASSIUM 3.7 mmol/L (3.5-5.1); TOTAL BILIRUBIN 0.4 mg/dL (0.0-1.0)
[2018-03-29] MEDS ORDERED: MAG SULF 2000 MG/WATER PREMIX 100 ML IV ONE (09:10)
[2018-03-29] MEDS ORDERED: MAGNESIUM SULFATE 4GM in STERILE WATER 100 ML PREMIX IV SCH (10:00)
--- NOTE | 2018-03-29 11:36 | NUR ---
AT 1055 AM PT HR DROPPED DOWN TP 38-40. PACEMAKER FAILED TO CAPTURE. mA INCREASED FROM 2-4. HR INCREASED TO [address] BHAKTA X2. # [phone]. AT 1120 HR DECREASED AGAIN TO 40. mA INCREASED TO 5. PAGED DR. BHAKTA #[phone]. WAITING FOR CALL BACK. CHADWICK MARTINEZ MADE AWARE.
--- NOTE | 2018-03-29 12:00 | NUR ---
WOUND CARE PROVIDED ORDERED. TOOK PICTURE. PUT IN THE CHART. PT DENIED PAIN ON AT THE SITE AT THIS TIME. NO ACTIVE BLEEDING AT THIS TIME. INTACT DRESSING.
--- NOTE | 2018-03-29 12:17 | NUR ---
PROVIDED LUNCH TRY. ASSISTED NEEDED. EATING LUNCH AT THIS TIME.
[2018-03-29] MEDS: GAUZE TP SCH (13:03)
--- NOTE | 2018-03-29 14:56 | NUR ---
Dr.PALIWAL Blunt CALLED BACK.NOTIFIED PT IS STILL ON OUTPUT 5 mA, PER DR. LIVIA Blunt, DECREASE OUT PUT TO 4 mA TO SEE HOW PT IS DOING, IF HR DECREASED, INCREASE TO 5 mA, WILL CARRY OUT.
--- NOTE | 2018-03-29 15:06 | NUR ---
RESTING IN BED COMFORTABLY. TALKING TO SON. PACED RHYTHM ON MONITOR. NO ACUTE RESPIRATORY DISTRESS NOTED. WILL CONTINUE TO MONITOR.
[2018-03-29] MEDS: INSULIN LANTUS 100 UNITS/ML 10 ML VIAL SUBQ SCH (16:32)
[2018-03-29] MEDS: VANCOMYCIN 1,250 MG in NACL 0.9% 250 ML IV SCH (16:38)
--- NOTE | 2018-03-29 16:48 | NUR ---
EVALUATED BY DR. MIRAMONTES.
--- NOTE | 2018-03-29 17:57 | NUR ---
EATING DINNER AT THIS TIME.
--- NOTE | 2018-03-29 18:26 | NUR ---
MINIMAL SEROSANGUINEOUS DISCHARGE NOTED ON DRESSING TO RIGHT THUMB. DRESSING CHANGED. KEPT SITE CLEAN AND DRY. DENIES PAIN AT THE SITE.
[2018-03-29] MEDS: PIPER/TAZO 3.375GM/D5W PREMIX 50 ML IV SCH ×2 (18:34→23:18)
--- NOTE | 2018-03-29 19:25 | NUR ---
RECEIVED REPORT FROM MORNING SHIFT RN. PATIENT AAOX4. PACED RHYTHM ON MONITOR. TEMPORARY PACEMAKER IN PLACE SET AT THE RATE 60, OUTPUT 4mA. NO ACTIVE BLEEDING AND DENIES PAIN AT THE SITE. DRESSING INTACT. BILATERAL LUNGS SOUND CLEAR. NO ACUTE RESPIRATORY DISTRESS NOTED. DENIES CHEST PAIN. PATIENT HAS PERIPHERAL IV SITES TO RIGHT FOREARM 22G AND LEFT AC 22 G INTACT AND PATENT, NS RUNNING AT 100 ML/HR. ACTIVE BOWEL SOUND FROM ALL QUADS. S/P WOUND DEBRIDEMENT, DRESSING ON RIGHT THUMB. SLIGHT SEROSANGUINEOUS DISCHARGE NOTED. NO PAIN AT THIS TIME NOTED. SKIN WARM TO TOUCH. HOB ELEVATED. BED IN LOW POSITION. WILL CONTINUE TO MONITOR.
--- NOTE | 2018-03-29 19:32 | NUR ---
REPORT GIVEN TO DIRECTOR ATHLETIC RN FOR CONTINUITY OF CARE. PT ON STABLE CONDITION.
--- NOTE | 2018-03-29 19:50 | NUR ---
DR. BHAKTA AT BEDSIDE TO CHECK THE PATIENT. DR STATED HE WILL INSERT PERMANENT PACEMAKER ON SUNDAY. WILL FOLLOW ORDER.
--- NOTE | 2018-03-29 21:00 | NUR ---
BS CHECKED 181 NOTED. ADMINISTERED 2UNITS OF HUMALOG. WILL CONTINUE TO MONITOR.
--- NOTE | 2018-03-29 22:00 | NUR ---
PATIENT STATED HE FEELS HUNGRY AT THIS TIME. PATIENT ATE SANDWICHES AND JUICE. DENIES ANY PAIN OR DISCOMFORT AT THIS TIME. WILL CONTINUE TO MONITOR.
--- NOTE | 2018-03-29 23:30 | NUR ---
ADMINISTERED IV ABX ORDERED. WILL CONTINUE TO MONITOR.
[2018-03-30] VITALS (12 sets, daily range): BP systolic 95–137; BP diastolic 65–86
[2018-03-30] MEDS: VANCOMYCIN 1,250 MG in NACL 0.9% 250 ML IV SCH ×3 (01:01→18:49)
--- NOTE | 2018-03-30 01:05 | NUR ---
PATIENT'S HR WENT DOWN TO 45, INCREASED PULSE GENERATOR OUTPUT 5mA, HR WENT UP TO 64 THEN DECREASED OUTPUT TO 4mA. PATIENT AAOX4, DENIES CHEST PAIN, NO ACUTE DISTRESS NOTED, TOLERATED WELL WITH ROOM AIR. WILL CONTINUE TO MONITOR.
[2018-03-30] MEDS: NACL 0.9% 1,000 ML IV SCH (03:10)
--- NOTE | 2018-03-30 03:50 | NUR ---
PATIENT IN ASLEEP, AROUSABLE TO NAME, NO ACUTE DISTRESS NOTED. DENIES PAIN AT THIS TIME. WILL CONTINUE TO MONITOR.
[2018-03-30] MEDS: PIPER/TAZO 3.375GM/D5W PREMIX 50 ML IV SCH ×4 (05:30→23:43)
[2018-03-30 06:00] LABS: HEMATOCRIT 40.3 % (36-52); MEAN CORPUSCULAR HEMOGLOBIN 32 pg (27-31); MEAN CORPUSCULAR HGB CONC 35 g/dL (33-37); MEAN CORPUSCULAR VOLUME 90.3 fL (80-94); PLATELET COUNT (AUTO) 220 K/uL (140-450); RED BLOOD CELL COUNT(AUTO) 4.46 MIL/uL (4.20-6.10); RED CELL DISTRIBUTION WIDTH 12.3 % (11.6-13.7); WHITE BLOOD COUNT (AUTO) 7.6 K/uL (4.8-10.8)
[2018-03-30 06:01] LABS: ALBUMIN 2.6 g/dL (3.4-5.0); ANION GAP 9.2 (8-16); BASOPHILS # (AUTO) 0.2 K/uL (0.00-0.22); BASOPHILS % (AUTO) 2.3 % (0.0-2.0); CARBON DIOXIDE 26.6 mmol/L (21-32); CREATININE 0.6 mg/dL (0.7-1.3); EOSINOPHILS # (AUTO) 0.1 K/uL (0-0.4); EOSINOPHILS % (AUTO) 1.2 % (0.0-4.0); LYMPHOCYTES # (AUTO) 2.2 K/uL (2.0-11.5); LYMPHOCYTES % (AUTO) 29.3 % (20.5-51.1); MONOCYTES # (AUTO) 0.6 K/uL (0.8-1.0); MONOCYTES % (AUTO) 7.8 % (1.7-9.3); NEUTROPHILS # (AUTO) 4.5 K/uL (1.8-7.7); NEUTROPHILS % (AUTO) 59.4 % (42.2-75.2); POTASSIUM 3.8 mmol/L (3.5-5.1); TOTAL BILIRUBIN 0.3 mg/dL (0.0-1.0)
--- NOTE | 2018-03-30 06:20 | NUR ---
ADMINISTERED SCHEDULED ABX ORDERED. NO ACUTE DISTRESS NOTED. DENIES PAIN. WILL CONTINUE TO MONITOR.
--- NOTE | 2018-03-30 07:05 | NUR ---
RECEIVED BEDSIDE REPORT FROM SOFTWARE TEST DEVELOPER RN, KAITLIN, FOR CONTINUITY OF CARE. PATIENT IS AAOX4, ABLE TO FOLLOW COMMANDS AND MAKE NEEDS KNOWN. PATIENT SKIN IS WARM AND DRY, NOT INTACT, HE HAS WOUND TO RIGHT THUMB, POST DEBRIDEMENT. HE HAS PERIPHERAL IV SITE TO L. AC AND R. FA, 22 GAUGE, ASYMPTOMATIC AND PATENT. PATIENT IS ON ROOM AIR, BREATHING UNLABORED AND EVEN. PATIENT HAS TEMPORARY PACEMAKER IN PLACE, RATE 60 OUTPUT 5mA, SR ON MONITOR. PATIENT DENIES ANY PAIN OR SOB. HOB IS ELEVATED, IN LOW POSITION AND LOCKED. ALL SAFETY PRECAUTIONS ASSESSED AND ENFORCED. CALL LIGHT WITHIN REACH. NO SIGNS OF DISTRESS NOTED. WILL CONTINUE TO MONITOR.
--- NOTE | 2018-03-30 07:15 | NUR ---
BEDSIDE REPORT GIVEN TO MORNING NURSE FOR CONTINUITY OF CARE.
[2018-03-30] MEDS: BLOOD GLUCOSE MONITORING 1 DEV DEV FS SCH ×4 (07:32→21:09)
[2018-03-30] MEDS: INSULIN LISPRO 100 UNITS/ML VIAL SUBQ SCH ×3 (07:38→16:44)
[2018-03-30] MEDS: ENOXAPARIN 40 MG/0.4 ML SYR SUBQ SCH (08:24)
[2018-03-30] MEDS ORDERED: MAG SULF 2000 MG/WATER PREMIX 100 ML IV ONE (09:25)
--- NOTE | 2018-03-30 10:52 | NUR ---
DR. HUMPHREYS IN TO SEE AND EXAMINE PATIENT, UPDATED ON PATIENT'S CONDITION. WILL FOLLOW UP WITH ANY ORDERS
[2018-03-30] MEDS ORDERED: VANCOMYCIN PER PHARMACY MC PRN (10:55)
[2018-03-30] MEDS ORDERED: MAGNESIUM SULFATE 4GM in STERILE WATER 100 ML PREMIX IV SCH (11:00)
[2018-03-30] MEDS: INSULIN LISPRO SLIDING SCALE 100 UNITS/ML VIAL SUBQ PRN ×2 (11:11→21:12)
[2018-03-30] MEDS: GAUZE TP SCH (11:12)
--- NOTE | 2018-03-30 12:35 | NUR ---
03/30/18 RD FOLLOW UP COMPLETED PLEASE REFER TO NUTRITION PROGRESS NOTE UNDER CARE ACTIVITY FOR ESTIMATED NUTRITION NEEDS. RD RECOMMENDATIONS: 1. CONTINUE CCHO 75 GM DIET TOLERATED 2. CONTINUE LETICIA BID FOR WOUND HEALING 3. RD TO FOLLOW-UP 3-5 DAYS, MODERATE RISK STEFAN TANNER MBA, RD
--- NOTE | 2018-03-30 14:03 | NUR ---
PT HR DROPPED TO 40S WHILE PT WAS SLEEPING. WOKE PT UP, PT STATED HE IS FINE. HR INCREASED TO 62-64S.
[2018-03-30] MEDS: INSULIN LANTUS 100 UNITS/ML 10 ML VIAL SUBQ SCH (16:44)
--- NOTE | 2018-03-30 17:10 | NUR ---
UNABLE TO ADMINISTER VANCO AT THIS TIME DUE TO MEDICATION NOT AVAILABLE IN [facility] AND PHARMACY CLOSED AT THIS TIME. WILL FOLLOW UP WITH FACILITY SERVICE MANAGER.
--- NOTE | 2018-03-30 17:44 | NUR ---
PROVIDED PATIENT WITH DINNER TRAY, FAMILY AT BEDSIDE. NO SIGNS OF DISTRESS NOTED. WILL CONTINUE TO MONITOR
[2018-03-30] MEDS ORDERED: VANCOMYCIN 1,000 MG VIAL ONE (18:24)
[2018-03-30] MEDS ORDERED: VANCOMYCIN 500 MG VIAL ONE (18:44)
--- NOTE | 2018-03-30 19:08 | NUR ---
ENDORSED CONTINUITY OF CARE TO SPECIAL EQUIPMENT TECHNICIAN RN, KAITLIN, PATIENT IS RESTING COMFORTABLY, NO SIGNS OF DISTRESS NOTED
--- NOTE | 2018-03-30 19:20 | NUR ---
RECEIVED REPORT FROM MORNING SHIFT RN. PATIENT AAOX4. PACED RHYTHM ON MONITOR. TEMPORARY PACEMAKER IN PLACE SET AT THE RATE 60, OUTPUT 4mA, ASYNCHRONIZED. NO ACTIVE BLEEDING AND DENIES PAIN AT THE SITE. DRESSING INTACT. BILATERAL LUNGS SOUND CLEAR. NO ACUTE RESPIRATORY DISTRESS NOTED. DENIES CHEST PAIN. PATIENT HAS PERIPHERAL IV SITES TO RIGHT FOREARM 22G AND LEFT AC 22 G INTACT AND PATENT, NS RUNNING AT 100 ML/HR. ACTIVE BOWEL SOUND FROM ALL QUADS. S/P WOUND DEBRIDEMENT, DRESSING ON RIGHT THUMB. SLIGHT SEROSANGUINEOUS DISCHARGE NOTED. NO PAIN AT THIS TIME NOTED. SKIN WARM TO TOUCH. HOB ELEVATED. BED IN LOW POSITION. WILL CONTINUE TO MONITOR.
--- NOTE | 2018-03-30 21:00 | NUR ---
ADMINISTERED SCHEDULED MEDICATIONS ORDERED. BS CHECKED 203 NOTED. ADMINISTERED HUMALOG 4 UNITS SLIDING SCALE. NO ACUTE DISTRESS, DENIES PAIN AT THIS TIME. CONTINUE TO MONITOR.
[2018-03-30] MEDS: MAGNESIUM OXIDE 400 MG TAB PO SCH (21:07)
--- NOTE | 2018-03-30 23:00 | NUR ---
PATIENT IN ASLEEP, AROUSABLE TO NAME. NO ACUTE DISTRESS NOTED. DENIES PAIN AT THIS TIME. WILL CONTINUE TO MONITOR.
[2018-03-31] VITALS (12 sets, daily range): BP systolic 96–162; BP diastolic 49–97
[2018-03-31] MEDS ORDERED: VANCOMYCIN 500 MG VIAL ONE (01:34)
[2018-03-31] MEDS ORDERED: VANCOMYCIN 1,000 MG VIAL ONE (01:35)
--- NOTE | 2018-03-31 01:50 | NUR ---
ADMINISTERED SCHEDULED ABX ORDERED. RECEIVED VANCOMYCIN 1G AND 500MG FROM HAND SPRING REPAIRER. ONLY VANCOMYCIN 1.250GM MIXED WITH NS 250ML ORDERED. PATIENT IN ASLEEP. WILL CONTINUE TO MONITOR.
[2018-03-31] MEDS: VANCOMYCIN 1,250 MG in NACL 0.9% 250 ML IV SCH ×3 (01:56→16:29)
--- NOTE | 2018-03-31 03:00 | NUR ---
PATIENT IN ASLEEP, NO ACUTE DISTRESS NOTED. PACED RHYTHM ON THE MONITOR. WILL CONTINUE TO MONITOR.
[2018-03-31] MEDS: PIPER/TAZO 3.375GM/D5W PREMIX 50 ML IV SCH ×3 (05:15→18:18)
--- NOTE | 2018-03-31 05:24 | NUR ---
ADMINISTERED SCHEDULED MEDICATIONS ORDERED. NO ACUTE DISTRESS NOTED. TOLERATED WELL WITH TEMPORARY PACE MAKER. PATIENT IN ASLEEP, AROUSABLE TO NAME. WILL CONTINUE TO MONITOR.
[2018-03-31 05:58] LABS: BASOPHILS % (AUTO) 0.6 % (0.0-2.0); EOSINOPHILS # (AUTO) 0.1 K/uL (0-0.4); EOSINOPHILS % (AUTO) 1.9 % (0.0-4.0); HEMATOCRIT 37.9 % (36-52); HEMOGLOBIN 12.7 g/dL (12.0-18.0); LYMPHOCYTES # (AUTO) 2.5 K/uL (2.0-11.5); LYMPHOCYTES % (AUTO) 35.8 % (20.5-51.1); MEAN CORPUSCULAR HEMOGLOBIN 30 pg (27-31); MEAN CORPUSCULAR HGB CONC 33 g/dL (33-37); MEAN CORPUSCULAR VOLUME 90.5 fL (80-94); MONOCYTES # (AUTO) 0.5 K/uL (0.8-1.0); MONOCYTES % (AUTO) 7.7 % (1.7-9.3); NEUTROPHILS # (AUTO) 3.8 K/uL (1.8-7.7); PLATELET COUNT (AUTO) 213 K/uL (140-450); RED BLOOD CELL COUNT(AUTO) 4.19 MIL/uL (4.20-6.10); RED CELL DISTRIBUTION WIDTH 13.3 % (11.6-13.7)
--- NOTE | 2018-03-31 07:20 | NUR ---
RECEIVED BEDSIDE REPORT FROM CLIENT CARE SPECIALIST RN, KAITLIN, FOR CONTINUITY OF CARE. PATIENT IS AAOX4, ABLE TO FOLLOW SIMPLE COMMANDS AND MAKE NEEDS KNOWN. PATIENT SKIN IS WARM AND DRY, NOT INTACT, PATIENT HAS I&D TO RIGHT THUMB, DRESSING DRY AND CLEAN. HE HAS PERIPHERAL IV SITE TO LAC AND RFA, 22 GAUGE, ASYMPTOMATIC, PATENT, INTACT. PATIENT IS ON ROOM AIR, BREATHING EVEN AND UNLABORED. PATIENT HAS EXTERNAL PACEMAKER IN PLACE RATE OF 60 AND OUTPUT OF 4mA. DENIES ANY PAIN OR SOB. HOB IS SEMI-FOWLERS, SAFETY PRECAUTIONS ASSESSED AND ENFORCED. NO SIGNS OF DISTRESS NOTED. WILL CONTINUE TO MONITOR.
[2018-03-31 07:24] LABS: ALBUMIN 2.4 g/dL (3.4-5.0); ANION GAP 11.2 (8-16); CARBON DIOXIDE 26.6 mmol/L (21-32); CREATININE 0.6 mg/dL (0.7-1.3); POTASSIUM 3.8 mmol/L (3.5-5.1); TOTAL BILIRUBIN 0.3 mg/dL (0.0-1.0)
--- NOTE | 2018-03-31 07:25 | NUR ---
BEDSIDE REPORT GIVEN TO MORNING SHIFT NURSE.
[2018-03-31] MEDS: BLOOD GLUCOSE MONITORING 1 DEV DEV FS SCH ×4 (07:35→20:07)
[2018-03-31] MEDS: INSULIN LISPRO 100 UNITS/ML VIAL SUBQ SCH ×3 (07:39→16:14)
--- NOTE | 2018-03-31 08:55 | NUR ---
ADMINISTERED SCHEDULED MEDS ORDERED, PATIENT TOLERATED WELL.
[2018-03-31] MEDS: MAGNESIUM OXIDE 400 MG TAB PO SCH ×2 (09:01→20:50)
[2018-03-31] MEDS: ENOXAPARIN 40 MG/0.4 ML SYR SUBQ SCH (09:02)
[2018-03-31] MEDS: INSULIN LISPRO SLIDING SCALE 100 UNITS/ML VIAL SUBQ PRN ×3 (11:53→20:56)
[2018-03-31] MEDS: GAUZE TP SCH (12:19)
--- NOTE | 2018-03-31 12:57 | NUR ---
PATIENT'S FRIEND AT BEDSIDE, NO SIGNS OF DISTRESS NOTED.
[2018-03-31] MEDS ORDERED: PROBIOTIC SCREEN 1 EA MISC MC PRN (13:50)
[2018-03-31] MEDS: INSULIN LANTUS 100 UNITS/ML 10 ML VIAL SUBQ SCH (16:18)
--- NOTE | 2018-03-31 18:10 | NUR ---
PATIENT PICKED UP BY PARAMEDICS, DENIES ANY SOB OR PAIN, STILL TACHYPNEIC AND TACHYCARDIC. ENDORSED REPORT TO PARAMEDICS, AWARE THAT PATIENT WILL BE TRANSFERRED TO [facility] SICU BED 6. Addendum: 03/31/18 at 1817 by Doris Lo RN WRONG PATIENT
--- NOTE | 2018-03-31 19:15 | NUR ---
PT IS AWAKE AND IN STABLE CONDITION AT THIS DEREK, ALERT AND ABLE TO RESPOND TO COMMANDS. AFERBILE 98.9 FOR TEMP. LUNG SOUNDS CLEAR ON UPPER BILATERAL LOBES ON AUSCULTATION, ON ROOM AIR. SR ON CIRCULAR CLERK, EXTERNAL PACEMAKER. HR OF 65, OUTPUTM mA=4. PIV LEFT AC 22 GAUGE, AND R FOREARM 22 GAUGE. INFUSING 100ML NS/HR. URINAL AND COMMODE AT BEDSIDE, PT IS INDEPENDENT ABLE TO AMBULATE. SKIN IS NON-INTACT, CELLULITIS ON RIGHT THUMB, DRESSING IS DRY AND INTACT. PT DENIES PAIN AND NAUSEA AT THIS TIME. STANDARD PRECAUTIONS MAINTAINED, SIDE RAILS UP X3. HOB ELEVATED ABOVE 30 DEG. Addendum: 04/01/18 at 0146 by Allyssa Rosas RN CORRECTION: AFEBRILE 97.6. PACEMAKER = mA=4, HR=60
--- NOTE | 2018-03-31 20:13 | NUR ---
DR. BEDOLLA AT BEDSIDE TO SEE PATIENT, TALKED TO PT ABOUT PLAN FOR PACEMAKER.
--- NOTE | 2018-03-31 20:52 | NUR ---
BG 242, 4 UNITS OF INSULIN GIVEN PER ORDER.
[2018-03-31] MEDS ORDERED: cefTRIAXone 1,000 MG VIAL ONE (20:58)
--- NOTE | 2018-03-31 21:05 | NUR ---
DR. MIRAMONTES AT BEDSIDE TO SEE PATIENT. NO NEW ORDERS AT THIS TIME.
--- NOTE | 2018-03-31 22:30 | NUR ---
PT IS SLEEPING AT THIS TIME,IN STABLE CONDITION. PT APPEARS RELAXED AND WITHOUT DISCOMFORT. ABLE TO REPOSITION SELF IN BED.
[2018-04-01] VITALS (12 sets, daily range): BP systolic 95–127; BP diastolic 60–93
--- NOTE | 2018-04-01 01:10 | NUR ---
RECEIVED REPORT FROM KIMBERLY ROWLAND. PATIENT IN ASLEEP AT THIS TIME, AROUSABLE TO NAME, ALFREDO. PACED RHYTHM ON MONITOR. TEMPORARY PACEMAKER IN PLACE SET AT THE RATE 60, OUTPUT 4mA, ASYNCHRONIZED. NO ACTIVE BLEEDING AND DENIES PAIN AT THE SITE. DRESSING INTACT. BILATERAL LUNGS SOUND CLEAR. NO ACUTE RESPIRATORY DISTRESS NOTED. DENIES CHEST PAIN. PATIENT HAS PERIPHERAL IV SITES TO RIGHT FOREARM 22G AND LEFT AC 22 G INTACT AND PATENT, NS RUNNING AT 100 ML/HR. ACTIVE BOWEL SOUND FROM ALL QUADS. S/P WOUND DEBRIDEMENT, DRESSING ON RIGHT THUMB. SLIGHT SEROSANGUINEOUS DISCHARGE NOTED. NO PAIN AT THIS TIME NOTED. SKIN WARM TO TOUCH. HOB ELEVATED. BED IN LOW POSITION. WILL CONTINUE TO MONITOR.
--- NOTE | 2018-04-01 04:00 | NUR ---
PATIENT IN ASLEEP, AROUSABLE TO VOICE. NO ACUTE DISTRESS NOTED. DENIES PAIN. WILL CONTINUE TO MONITOR.
[2018-04-01 04:59] LABS: BASOPHILS % (AUTO) 0.5 % (0.0-2.0); EOSINOPHILS # (AUTO) 0.1 K/uL (0-0.4); EOSINOPHILS % (AUTO) 1.7 % (0.0-4.0); HEMATOCRIT 37.6 % (36-52); HEMOGLOBIN 12.6 g/dL (12.0-18.0); LYMPHOCYTES # (AUTO) 3.1 K/uL (2.0-11.5); LYMPHOCYTES % (AUTO) 37.9 % (20.5-51.1); MEAN CORPUSCULAR HEMOGLOBIN 30 pg (27-31); MEAN CORPUSCULAR HGB CONC 34 g/dL (33-37); MEAN CORPUSCULAR VOLUME 90.4 fL (80-94); MONOCYTES # (AUTO) 0.6 K/uL (0.8-1.0); MONOCYTES % (AUTO) 6.9 % (1.7-9.3); NEUTROPHILS # (AUTO) 4.4 K/uL (1.8-7.7); PLATELET COUNT (AUTO) 220 K/uL (140-450); RED BLOOD CELL COUNT(AUTO) 4.15 MIL/uL (4.20-6.10); RED CELL DISTRIBUTION WIDTH 13.3 % (11.6-13.7); WHITE BLOOD COUNT (AUTO) 8.3 K/uL (4.8-10.8)
[2018-04-01 05:26] LABS: ALBUMIN 2.4 g/dL (3.4-5.0); ANION GAP 11.4 (8-16); CARBON DIOXIDE 28.5 mmol/L (21-32); CREATININE 0.6 mg/dL (0.7-1.3); POTASSIUM 3.9 mmol/L (3.5-5.1); TOTAL BILIRUBIN 0.2 mg/dL (0.0-1.0)
--- NOTE | 2018-04-01 07:00 | NUR ---
BS CHECKED 186 NOTED. HOLD INSULIN DUE TO NPO AT THIS TIME FOR PERMANENT PACE MAKER PLACEMENT. WILL CONTINUE TO MONITOR.
[2018-04-01] MEDS: BLOOD GLUCOSE MONITORING 1 DEV DEV FS SCH ×4 (07:17→20:43)
--- NOTE | 2018-04-01 07:21 | NUR ---
RECEIVED REPORT FROM PLANNING DIVISION SUPERINTENDENT RN. PT RESTING IN BED. ALERT A/O X4. ABLE TO MAKE NEEDS KNOWN. PACED RHYTHM ON MONITOR. TEMPORARY PACEMAKER IN PLACE SET AT THE RATE 60, mA WAS 5 DECREASED BY PLANNING DIVISION SUPERINTENDENT RN TO 4, ASYNCHRONIZE. NO ACTIVE BLEEDING AT PACEMAKER SITE. DRESSING INTACT. SKIN DRY AND WARM TO TOUCH. LUNGS CLEAR. DENIES CHEST PAIN, DIZZINESS, NAUSEA AT THIS TIME. RIGHT FOREARM 22G AND LEFT AC 22 G, INTACT. NS RUNNING AT 10 ML/HR. ABDOMEN SOFT ROUND AND NON-TENDER. ACTIVE BOWEL SOUND. S/P WOUND DEBRIDEMENT DRESSING ON RIGHT THUMB. INTACT. NO DRAINAGE. KEPT HOB ELEVATED. BED IN LOW POSITION LOCKED. WILL CONTINUE TO MONITOR.
--- NOTE | 2018-04-01 07:21 | NUR ---
BEDSIDE REPORT GIVEN TO MORNING NURSE FOR CONTINUITY OF CARE.
[2018-04-01] MEDS: INSULIN LISPRO 100 UNITS/ML VIAL SUBQ SCH ×3 (07:30→16:51)
[2018-04-01] MEDS: HYDROcodone/APAP 5/325 MG 1 TAB TAB PO PRN ×2 (08:06→14:36)
[2018-04-01] MEDS: LACTOBACILLUS RHAMNOSUS GG 1 EACH CAP PO SCH (08:07)
[2018-04-01] MEDS: MAGNESIUM OXIDE 400 MG TAB PO SCH ×2 (08:07→20:44)
[2018-04-01] MEDS: ENOXAPARIN 40 MG/0.4 ML SYR SUBQ SCH (08:07)
--- NOTE | 2018-04-01 08:08 | NUR ---
LOVENOX NOT ADMINISTERED. PT IS SCHEDULED FOR PERMANENT PACEMAKER PLACEMENT AT 1225.
--- NOTE | 2018-04-01 08:13 | NUR ---
OFFERED MORNING CARE. PT SAID WILL DO LATER. SAID "I AM SLEEPY NOW."
[2018-04-01] MEDS ORDERED: LIDOCAINE/EPI 2% 1:100000 20 ML VIAL INJ ONE (08:32)
[2018-04-01] MEDS ORDERED: ceFAZolin 1,000 MG VIAL ONE ×3 (08:32→12:59)
--- NOTE | 2018-04-01 08:35 | NUR ---
RECEIVED CALL FROM DR. BHAKTA. MADE AWARE ABOUT HOLDING INSULIN SUBQ AND LOVENOX. SAID OK.
--- NOTE | 2018-04-01 10:30 | NUR ---
WOUND CARE RE-EVALUATION NOTES REASON FOR EVALUATION: S/P I&D AND DEBRIDEMENT OF THE RIGHT THUMB 03/25 SKIN ASSESSMENT DONE ON THIS 57 Y/O MALE PATIENT FROM HOME TO [facility], WITH INITIAL DIAGNOSIS OF RIGHT THUMB PAIN. PAST MEDICAL HISTORY INCLUDE UNCONTROL DM. ABOVE INFORMATION WAS OBTAINED FROM THE ADMISSION H&P. LABS ARE WBC 8.3, H/H 12.6/37.6, GLUCOSE 252, AND ALBUMIN 2.4. PATIENT IS AWAKE, ORIENTED TO PERSON, PLACE, DATE AND TIME. SKIN WARM TO TOUCH WNL, RIGHT HAND WARM NORMAL IN COLOR WITH GOOD CIRCULATION TO ALL FINGERS EXCEPT RIGHT THUMB , SAM OF PAIN TO RIGHT THUMB.TOENAILS ARE SHORT AND THICKENED, FUNGALLY LOOKING, NO EDEMA, BILATERAL PEDAL PULSES, PRESENT. LEFT ARM PERIPHERAL IV PATENT AND INTACT. ON ROOM AIR. PLAN OF CARE AND DIABETIC FOOT CARE EXPLAIN TO PT. PT.ABLE TO VERBALIZE UNDERSTANDING. INTEGUMENTARY: -S/P I&D AND DEBRIDEMENT OF RIGHT THUMB CELLULITIS, 3.5X2.2X0.3 CM , WOUND BED RED/PINK, RIGHT THUMB IS WARM WITH SWELLING, PAIN 0/10 RECOMMENDATIONS: -CLEANSE RIGHT THUMB WITH NS, PAT DRY. PACK WOUND WITH IODOFORM STRIP. APPLY ADAPTIC DRESSING AND WRAP WITH KERLIX ROLL AND SECURE WITH TAPE -KEEP SKIN CLEAN AND DRY AT ALL TIMES. RECOMMENDATIONS DISCUSSED WITH PRIMARY RN WILL FOLLOW UP PATIENT Q7 DAYS AND PRN. PLEASE CONTACT WOUND CARE NURSE FOR ANY QUESTIONS AND CHANGES IN SKIN CONDITION.
--- NOTE | 2018-04-01 11:28 | NUR ---
BS 164. PT ON NPO STATUS INSULIN NOT ADMINISTERED.
[2018-04-01] MEDS ORDERED: fentaNYL 0.05 MG/ML VIAL ONE (12:25)
[2018-04-01] MEDS ORDERED: MIDAZOLAM 2 MG/2 ML VIAL ONE (12:25)
--- NOTE | 2018-04-01 12:25 | NUR ---
PT TAKEN TO OR BY OR NURSES VIA BED. PT ON STABLE CONDITION DURING TRANSFER. FAMILY LEFT ICU WITH PATIENT.
[2018-04-01 12:49] LABS: APPEARANCE,URINE SLIGHTLY HAZY (CLEAR); BILIRUBIN,URINE NEGATIVE (NEGATIVE); BLOOD, URINE NEGATIVE (NEGATIVE); COLOR,URINE YELLOW (YELLOW); LEUKOCYTE ESTERASE ,URINE NEGATIVE (NEGATIVE); NITRITE, URINE NEGATIVE (NEGATIVE); UGLUCOSE NEGATIVE (NEGATIVE)
[2018-04-01 12:50] LABS: RBC,URINE 0-5 (RARE) /HPF (0-5); WBC,URINE 0-5 (RARE) /HPF (0-5)
[2018-04-01] MEDS ORDERED: LIDOCAINE/EPI MPF 2%1:200000 10 ML VIAL INJ ONE (13:04)
[2018-04-01] MEDS: GAUZE TP SCH (13:39)
--- NOTE | 2018-04-01 14:15 | NUR ---
PT RECEIVED FROM OR VIA BED. PT A/O X4. ABLE TO VERBALIZE NEEDS. S/P TEMPORARY PACEMAKER SITE ON RIGHT UPPER CHEST COVERED WITH DRESSING. NO ACTIVE DRAINAGE AT THE SITE. NEW PERMANENT PACEMAKER ON LEFT UPPER CHEST. DRESSING TRANSPARENT, INTACT. PACED RHYTHM ON MONITOR. NO BLEEDING AT THE SITE. PT DENIES PAIN THE THE SITE. C/O HEADACHE. WILL MEDICATE ORDER. VS P 60 BP 102/63 SPO2 99% RR 12. WILL CONTINUE TO MONITOR.
--- NOTE | 2018-04-01 14:44 | NUR ---
PACEMAKER BOOKLET AND TEMPORARY ID HANDED TO THE SON JANIE. SON AND AT BED SIDE.
--- NOTE | 2018-04-01 14:46 | NUR ---
PT OK TO HAVE FOOD PER DR. HBAKTA. PT TOLERATED PO FEEDING. EATING SALAD BROUGHT BY FAMILY.
[2018-04-01] MEDS: INSULIN LANTUS 100 UNITS/ML 10 ML VIAL SUBQ SCH (16:52)
--- NOTE | 2018-04-01 16:54 | NUR ---
ADMINISTER INSULIN SUBQ ORDERED. TOLERATING WELL.
--- NOTE | 2018-04-01 18:02 | NUR ---
SITTING AT BEDSIDE, EATING DINNER.
[2018-04-01] MEDS ORDERED: INFLUENZA VIRUS VACCINE QUAD 0.5 ML SYR IMVAC PRN (18:40)
[2018-04-01] MEDS ORDERED: PNEUMOCOCCAL VACCINE 23 MCG/0.5 ML VIAL IMVAC SCH (18:40)
--- NOTE | 2018-04-01 19:20 | NUR ---
RECEIVED REPORT FROM MORNING SHIFT RN. PATIENT AAOX4. PACED RHYTHM ON MONITOR. PERMANEBT PACEMAKER IN PLACE TO LEFT UPPER CHEST. BILATERAL LUNGS SOUND CLEAR. NO ACUTE RESPIRATORY DISTRESS NOTED. DENIES CHEST PAIN. PATIENT HAS SALINE LOCK IV SITES TO RIGHT FOREARM 22G AND LEFT AC 22 G INTACT AND PATENT. ACTIVE BOWEL SOUND FROM ALL QUADS. S/P WOUND DEBRIDEMENT, DRESSING ON RIGHT THUMB. SLIGHT SEROSANGUINEOUS DISCHARGE NOTED. NO PAIN AT THIS TIME NOTED. SKIN WARM TO TOUCH. HOB ELEVATED. BED IN LOW POSITION. WILL CONTINUE TO MONITOR.
--- NOTE | 2018-04-01 19:20 | NUR ---
ADMINISTERED FLU SHOT AND PNA VACCINE PER ORDER. NO ADVERSE REACTION NOTED. TOLERATING WELL.
--- NOTE | 2018-04-01 19:27 | NUR ---
REPORT GIVEN TO AUDIO VIDEO TECH RN FOR CONTINUITY OF CARE. [PT ON STABLE CONDITION.
[2018-04-01] MEDS: INSULIN LISPRO SLIDING SCALE 100 UNITS/ML VIAL SUBQ PRN (20:45)
--- NOTE | 2018-04-01 20:45 | NUR ---
ADMINISTERED SCHEDULED MEDICATIONS ORDERED, BS CHECKED 294 NOTED. ADMINISTERED 6 UNITS OF INSULIN. PROVIDED SANDWICHES PATIENT'S REQUEST. NO ACUTE DISTRESS NOTED. 100% PACED RHYTHM WITH HR 60 NOTED. DENIES PAIN AT THIS TIME. WILL CONTINUE TO MONITOR.
--- NOTE | 2018-04-01 22:30 | NUR ---
PATIENT IN ASLEEP AT THIS TIME, AROUSABLE TO VOICE. NO ACUTE DISTRESS NOTED. WILL CONTINUE TO MONITOR.
[2018-04-02] VITALS (10 sets, daily range): BP systolic 91–143; BP diastolic 60–91
--- NOTE | 2018-04-02 | NUR ---
PATIENT WOKE UP FOR URINATION. CLEAR YELLOW URINE NOTED. DENIES PAIN OR DISCOMFORT. WILL CONTINUE TO MONITOR.
--- NOTE | 2018-04-02 02:30 | NUR ---
PATIENT IN ASLEEP AT THIS TIME. NO ACUTE DISTRESS NOTED. WILL CONTINUE TO MONITOR.
--- NOTE | 2018-04-02 05:00 | NUR ---
PATIENT IN ASLEEP AT THIS TIME, AROUSABLE TO VOICE. NO ACUTE DISTRESS NOTED. DENIES PAIN. WILL CONTINUE TO MONITOR.
[2018-04-02 05:13] LABS: BASOPHILS # (AUTO) 0.1 K/uL (0.00-0.22); BASOPHILS % (AUTO) 0.8 % (0.0-2.0); EOSINOPHILS # (AUTO) 0.2 K/uL (0-0.4); EOSINOPHILS % (AUTO) 2.1 % (0.0-4.0); HEMATOCRIT 38.1 % (36-52); HEMOGLOBIN 12.8 g/dL (12.0-18.0); LYMPHOCYTES # (AUTO) 1.8 K/uL (2.0-11.5); LYMPHOCYTES % (AUTO) 24.8 % (20.5-51.1); MEAN CORPUSCULAR HEMOGLOBIN 31 pg (27-31); MEAN CORPUSCULAR HGB CONC 34 g/dL (33-37); MEAN CORPUSCULAR VOLUME 90.4 fL (80-94); MONOCYTES # (AUTO) 0.5 K/uL (0.8-1.0); MONOCYTES % (AUTO) 6.5 % (1.7-9.3); NEUTROPHILS # (AUTO) 4.8 K/uL (1.8-7.7); NEUTROPHILS % (AUTO) 65.8 % (42.2-75.2); PLATELET COUNT (AUTO) 231 K/uL (140-450); RED BLOOD CELL COUNT(AUTO) 4.21 MIL/uL (4.20-6.10); RED CELL DISTRIBUTION WIDTH 13.1 % (11.6-13.7); WHITE BLOOD COUNT (AUTO) 7.3 K/uL (4.8-10.8)
[2018-04-02 05:43] LABS: ALBUMIN 2.6 g/dL (3.4-5.0); ANION GAP 9.3 (8-16); CARBON DIOXIDE 29.9 mmol/L (21-32); CREATININE 0.6 mg/dL (0.7-1.3); POTASSIUM 4.2 mmol/L (3.5-5.1); TOTAL BILIRUBIN 0.2 mg/dL (0.0-1.0)
[2018-04-02] MEDS: BLOOD GLUCOSE MONITORING 1 DEV DEV FS SCH ×3 (07:14→16:54)
--- NOTE | 2018-04-02 07:15 | NUR ---
BEDSIDE REPORT GIVEN TO MORNING SHIFT RN FOR CONTINUITY OF CARE.
[2018-04-02] MEDS: HYDROcodone/APAP 5/325 MG 1 TAB TAB PO PRN (07:23)
--- NOTE | 2018-04-02 07:30 | NUR ---
RECEIVED REPORT FROM PM NURSE, PT AWAKE, ALERT. RA. NO S/S OF RESPIRATORY DISTRESS NOTED. PT HAD PERMANENT PACEMAKER TO LEFT CHEST, SITE INTACT AND DRY. NO REDNESS NOTED. LUNG SOUND CLEAR, PT HAS IV TO RIGHT FA AND LEFT AC, SITE INTACT AND PATENT. SKIN NON INTACT TO RIGHT THUMB.COVERED WITH DRESSING. DRY AND INTACT. PT ABLE TO AMBULATE. PT ALSO C/O HEADACHE, PAIN MENDS GIVEN.POC EXPLAINED TO PT,PT VERBALIZED UNDERSTANDING. CALL LIGHT IN PLACE, WILL CONTINUE TO MONITOR.
[2018-04-02] MEDS: INSULIN LISPRO 100 UNITS/ML VIAL SUBQ SCH ×3 (07:44→17:42)
[2018-04-02] MEDS: INSULIN LISPRO SLIDING SCALE 100 UNITS/ML VIAL SUBQ PRN ×3 (07:45→17:42)
[2018-04-02] MEDS: ENOXAPARIN 40 MG/0.4 ML SYR SUBQ SCH (08:39)
[2018-04-02] MEDS: LACTOBACILLUS RHAMNOSUS GG 1 EACH CAP PO SCH (08:39)
[2018-04-02] MEDS: MAGNESIUM OXIDE 400 MG TAB PO SCH (08:39)
--- NOTE | 2018-04-02 10:55 | NUR ---
DRESSING TO RIGHT THUMB IS OFF, CLEANED WOUND AND PUT NEW DRESSING ON. PT TOLERATED WELL.
[2018-04-02] MEDS ORDERED: ATOR40TA PO (12:04)
[2018-04-02] MEDS ORDERED: [UNRECOGNIZED DRUG - CODE] (12:04)
[2018-04-02] MEDS ORDERED: ROC1PM IV (12:04)
[2018-04-02] MEDS ORDERED: LANTUS SUBQ (12:04)
[2018-04-02] MEDS: GAUZE TP SCH (13:00)
--- NOTE | 2018-04-02 13:40 | NUR ---
Integration Technician Note: I met with patient at bedside. Patient speaks Faroese. Per patient, he has never been at a long-term facility before. He is in agreement with short term snf placement for wound care and abx ivs. He prefers to be transfer to [facility] if possible since it is close to his home, he lives in [place], [place]. His second snf choice is [facility] , adult protective caseworker Shasta pathak aware. I faxed inquiry to [facility].
--- NOTE | 2018-04-02 14:12 | NUR ---
Animal Rehabilitator Note: Per Fabrizio from [facility] , they don't have a male short term bed available at this time, unable to accept patient. I faxed inquiry to Yasmany Goldberg.
--- NOTE | 2018-04-02 14:30 | NUR ---
DR. HUMPHREYS USED OCCUPATIONAL THERAPY SPECIALIST SERVICE #[id number] TO EXPLAIN RISKS AND BENEFITS REGARDING PICC LINE INSERTION. PT SIGNED CONSENT.
--- NOTE | 2018-04-02 14:40 | NUR ---
PICC LINE NURSE STARTED TO INSERT PICC LINE, TIME OUT FORM DONE, US TECH AT BEDSIDE GUIDED.
--- NOTE | 2018-04-02 15:07 | NUR ---
x-ray at bedside.
--- NOTE | 2018-04-02 15:29 | NUR ---
Barge Pilot Note: Per Marietta from [facility] , patient has been accepted and may go to room 2B at their facility today, accepting physician is , showcase trimmer Shasta pathak aware.
--- NOTE | 2018-04-02 15:33 | NUR ---
I CALLED CORRIE FROM [facility] AND INFORMED HER THAT [facility] WILL TAKE THE PATIENT. SHE SAID THE AUTH NUMBER FOR [facility] IS [id number]. PER ZARA FROM [facility], THE AUTH FOR TRANSPORT IS [id number]. I FAXED THE ORDER TO [facility], CORRIE PHONE [phone]. FAX [phone]
--- NOTE | 2018-04-02 16:06 | NUR ---
CALLED [facility] TO SET UP TRANSPORT. CASE PACKER AND SEALER WILL BE AT 1800.
--- NOTE | 2018-04-02 16:11 | NUR ---
CALLED [facility] [phone], REPORT GIVEN TO OXANA ROWLAND. PT WILL BE TRANSFERRED TO ROOM 2B.
--- NOTE | 2018-04-02 16:49 | NUR ---
ALL CONSULTS (DR. MIRAMONTES, DR. Jeannie BHAKTA AND DR. REYES) MADE AWARE OF DISCHARGE ORDER.
[2018-04-02] MEDS ORDERED: MAGNESIUM OXIDE 400 MG TAB PO SCH (16:55)
--- NOTE | 2018-04-02 17:00 | NUR ---
CALLED DR. HUMPHREYS MAG LEVEL 1.4, MAG-OX 400 MG ORDER RECEIVED AND CARRIED OUT.
[2018-04-02] MEDS: INSULIN LANTUS 100 UNITS/ML 10 ML VIAL SUBQ SCH (17:44)
--- NOTE | 2018-04-02 17:50 | NUR ---
PT AWAKE, ALERT. SIGNED DISCHARGE INSTRUCTION. TOLD PT TO VISIT DR. LIVIA Blunt AND DR. REYES'S OFFICE IN 10 DAYS AND TWO WEEKS SEPARATELY. OFFICE NUMBERS GIVEN. PT VERBALIZED UNDERSTANDING.
--- NOTE | 2018-04-02 18:33 | NUR ---
TRANSPORTATION TEAM PRESENT TO BEDSIDE. REPORT GIVEN.PT AWAKE, ALERT. RA, NO S/S OF RESPIRATORY DISTRESS NOTED. PT DENIES PAIN. PT LEFT UNIT IN STABLE CONDITION. Addendum: 04/02/18 at 1838 by Evan Reaves RN ALL PERSONAL BELONGINGS WITH PT.
--- NOTE | 2018-04-03 11:22 | NUR ---
Crematory Operator Note: Late entry for 04/02/18: I provided Marietta from [facility] with snf auth [id number] from [facility].
--- NOTE | 2018-04-03 12:36 | NUR ---
Hereditary Cancer Program Coordinator Note: Late entry for 04/02/18: Rome Mcmanus from [facility] , she will schedule an appointment for patient to see in two weeks and an appointment to see Merlene Cesar in 10 days. She stated they will take patient to these two physicians' office.
== END 2018-04-02 18:30 | DRG 710 ==
LOC: MED 18:41 → MTU 23:35 → MIC 03-27 23:32
PROVIDERS: ADMIT Hospitalist; ATTEND Hospitalist
PROC: 0JH604Z Insertion of Pacemaker, Single Chamber into Chest Subcutaneous Tissue and Fascia, Open Approach (ICD-10-PCS; 2018-03-28)
PROC: 02HK3JZ Insertion of Pacemaker Lead into Right Ventricle, Percutaneous Approach (ICD-10-PCS; 2018-03-28)
PROC: 0JBJ0ZZ Excision of Right Hand Subcutaneous Tissue and Fascia, Open Approach (ICD-10-PCS; principal; 2018-03-28 08:30)
PROC: 0JH606Z Insertion of Pacemaker, Dual Chamber into Chest Subcutaneous Tissue and Fascia, Open Approach (ICD-10-PCS; 2018-04-01)
PROC: 02H63JZ Insertion of Pacemaker Lead into Right Atrium, Percutaneous Approach (ICD-10-PCS; 2018-04-01)
PROC: 02HK3JZ Insertion of Pacemaker Lead into Right Ventricle, Percutaneous Approach (ICD-10-PCS; 2018-04-01)
PROC: 3E02340 Introduction of Influenza Vaccine into Muscle, Percutaneous Approach (ICD-10-PCS; 2018-04-01)
PROC: 3E0234Z Introduction of Serum, Toxoid and Vaccine into Muscle, Percutaneous Approach (ICD-10-PCS; 2018-04-01)
PROC: 02HV33Z Insertion of Infusion Device into Superior Vena Cava, Percutaneous Approach (ICD-10-PCS; 2018-04-02)
PROC: B548ZZA Ultrasonography of Superior Vena Cava, Guidance (ICD-10-PCS; 2018-04-02)
DX: A41.9 Sepsis, unspecified organism (principal); E11.00 Type 2 diabetes mellitus with hyperosmolarity without nonketotic hyperglycemic-hyperosmolar coma (NKHHC); I44.2 Atrioventricular block, complete; I49.5 Sick sinus syndrome; E11.21 Type 2 diabetes mellitus with diabetic nephropathy; E11.65 Type 2 diabetes mellitus with hyperglycemia; E11.69 Type 2 diabetes mellitus with other specified complication; E83.42 Hypomagnesemia; L03.011 Cellulitis of right finger; L02.511 Cutaneous abscess of right hand; M86.8X4 Other osteomyelitis, hand; B95.2 Enterococcus as the cause of diseases classified elsewhere; I11.9 Hypertensive heart disease without heart failure; I45.10 Unspecified right bundle-branch block; S62.521A Displaced fracture of distal phalanx of right thumb, initial encounter for closed fracture; E87.8 Other disorders of electrolyte and fluid balance, not elsewhere classified; R94.31 Abnormal electrocardiogram [ECG] [EKG]; E78.5 Hyperlipidemia, unspecified; M72.9 Fibroblastic disorder, unspecified; Z95.0 Presence of cardiac pacemaker; Y93.89 Activity, other specified; Y92.89 Other specified places as the place of occurrence of the external cause; Z79.84 Long term (current) use of oral hypoglycemic drugs; Y99.8 Other external cause status; W31.2XXA Contact with powered woodworking and forming machines, initial encounter; Z79.899 Other long term (current) drug therapy; Z23 Encounter for immunization
CPT/HCPCS: 36415; 71045; 73140; 78300; 78315; 80048; 80053; 80202; 81001; 82948; 83735; 84100; 84439; 84443; 84484; 85025; 85610; 85651; 85730; 86140; 87040; 87070; 87075; 87081; 87186; 87205; 90471; 90658; 90715; 90732; 93005; 96365; 96366; 96372; 99285; C1751; C1785; C1786; J0690; J0696; J1650; J1815; J2001; J2250; J2270; J2543; J2704; J3010; J3370; J3475; J3490; J7030; J7060; Q0092